=== PATIENT | male | born 1965 | race Caucasian/White ===

== ENCOUNTER 2018-05-12 10:43 | Inpatient (IN) | payer OTHER ==
[~2018-05-12] VITALS: Ht 182.9 cm; Wt 125.6 kg
[2018-05-12] VITALS (15 sets, daily range): BP systolic 86–129; BP diastolic 57–87
[~2018-05-12 10:43] MED LIST: ALBUTEROL INH IH; ALBUTEROL2.5 MG/0.5 INH; ASPIR 8181 MG PO; ATIVAN0.5 MG PO; AUGMENTIN 875-1 EACH PO; AZITHROMYCIN 2250 MG PO; AZULFIDINE; BIAXIN 250MG T250 M1 PO; BROVANA15 MCG/2 M INH; CELEXA20 MG PO; CHANTIX; CHANTIX1 MG PO; DOXEPIN 10 MG C10 M1 PO; DUONEB 2.5-0.5 M3 ML INH; FENTANYL PA50 MCG/HR TRANSDERM; FISH OIL 1,001000 M2 PO; FLEXERIL PO; FLURAZEPAM 15 M15 M1 PO; FOLIC ACID PO; FOLIC ACID1 MG PO; INDOCIN PO; INDOCIN SR75 MG PO; LEVAQUIN 500 M500 M2 PO; LEVAQUIN 750 M750 MG PO; LIDODERM 5%1 PATC1 TRANSDERM; METHOTREXATE; METHOTREXATE 22.5 M1; MUCINEX TA600 MG/TA1 PO; MUCINEX600 MG PO; NICOTINE TRANSD21 M1; NORCO 5-325 TA1 EACH PO; OMEPRAZOLE PO; PERCOCET 10-321 EACH PO; PERCOCET 7.5-31 EACH; PREDNISONE; PREDNISONE 10 M10 M1; PREDNISONE 10 M10 MG PO; PREDNISONE 5 MG5 M1 PO; PREDNISONE 5 MG5 MG; PREDNISONE PO; PRILOSEC; PRILOSEC 20 MG20 MG PO; PROAIR; REMICADE; REMICADE 1100 MG/VIA; REMICADE 1100 MG/VIA IV; RHEUMATREX2.5 MG PO; SINGULAIR 10 MG10 MG; SPIRIVA; SPIRIVA IH; SULFASALAZINE500 M1 PO; SULFASALAZINE500 M5 PO; TESSALON200 MG PO; VITAMIN D2000 UNIT PO; XANAX1 MG PO; XARELTO20 MG PO; ZPAK PO
[2018-05-12 11:07] LABS: ABSOLUTE BASOPHILS 0.1 thou/uL (0.0-0.2); ABSOLUTE EOSINOPHILS 0.1 thou/uL (0.0-0.7); ABSOLUTE LYMPHOCYTES 2.6 thou/uL (0.8-5.3); ABSOLUTE MONOCYTES 1.4 thou/uL (0.0-1.2); ABSOLUTE NEUTROPHILS 12.3 thou/uL (1.6-8.1); BASOPHILS 0.5 %; EOSINOPHILS 0.3 %; HEMOGLOBIN 16.4 gm/dL (14.0-18.0); LYMPHOCYTES 15.8 %; MCH 30.2 pg (26.0-34.0); MCHC 34.1 g/dL (28.0-37.0); MCV 88.7 fL (80.0-100.0); MONOCYTES 8.4 %; MPV 8.4 fl. (7.2-11.1); NUCLEATED RBCS 0 /100WBC; PLATELET COUNT* 319 thou/uL (150-400); RBC 5.41 mil/uL (4.50-6.00); RDW-CV 13.5 % (10.5-14.5); WBC 16.4 thou/uL (4.0-11.0)
[2018-05-12] MEDS ORDERED: ATORVASTATIN CA40 MG PO (11:16)
[2018-05-12] MEDS ORDERED: LISINOPRIL20 MG PO (11:18)
[2018-05-12] MEDS ORDERED: METFORMIN HCL500 MG PO (11:19)
[2018-05-12] MEDS ORDERED: TRESIBA FL100 UNIT/1 INJECTION (11:20)
[2018-05-12] MEDS ORDERED: FLEXERIL PO (11:21)
[2018-05-12] MEDS ORDERED: EFFEXOR XR75 MG PO (11:24)
[2018-05-12 11:31] LABS: APTT 26.6 Seconds (25.0-31.3); INR 1.1; PROTIME 11.1 Seconds (9.20-11.50)
[2018-05-12 11:56] LABS: ANION GAP 12 mmol/L (7-16); BUN 13 mg/dL (7-18); CALCIUM 9.2 mg/dL (8.5-10.1); CHLORIDE 97 mmol/L (98-107); CO2 24 mmol/L (21-32); CREATININE 0.9 mg/dL (0.6-1.3); GLUCOSE 288 mg/dL (70-99); POTASSIUM 3.9 mmol/L (3.5-5.1); SODIUM 133 mmol/L (136-145)
[2018-05-12 12:01] LABS: ALBUMIN 3.2 g/dL (3.4-5.0); ALKALINE PHOSPHATASE 76 U/L (46-116); CK-MB MASS 3.9 ng/mL (<0.5-3.6); LIPASE 108 U/L (73-393); MAGNESIUM 1.8 mg/dL (1.8-2.4); NT-PRO BRAIN NAT PEPTIDE 101 pg/mL (<300); SGOT 31 U/L (15-37); SGPT 49 U/L (30-65); TOTAL BILIRUBIN 0.6 mg/dL (<0.1-1.0); TOTAL PROTEIN 8.3 g/dL (6.4-8.2); TROPONIN-I LEVEL <0.06 ng/mL (<0.06)
--- NOTE | 2018-05-12 15:46 | NUR ---
ADMISSION ASSESSMENT AND HISTORY COMPLETED REFER TO COMPUTER CHARTING. PANEL WIRER TRACKING SR. PATIENT IN BAD PAIN IN HIS LOWER BACK, ORAL MEDS GIVEN WITHOUT RELIEF. IV PAIN MEDS GIVEN PER EMAR, PATIENT REPORTING FEELING BETTER AND SLEEPING AT THIS TIME. BED IN LOW AND LOCKED POSITION. CALL LIGHT WITHIN REACH. IV FLUIDS INFUSING. ON 4 LITERS VIA NASAL CANNULA WITH O2 SATS READING 93%. DR AZUL IN TO SEE PATIENT THIS AFTERNOON. WILL CONTINUE TO MONITOR.
[2018-05-13] VITALS (11 sets, daily range): BP systolic 92–120; BP diastolic 56–91
[2018-05-13 03:59] LABS: ABSOLUTE BASOPHILS 0.1 thou/uL (0.0-0.2); ABSOLUTE EOSINOPHILS 0.1 thou/uL (0.0-0.7); ABSOLUTE LYMPHOCYTES 2.6 thou/uL (0.8-5.3); ABSOLUTE MONOCYTES 1.1 thou/uL (0.0-1.2); ABSOLUTE NEUTROPHILS 10.3 thou/uL (1.6-8.1); BASOPHILS 0.5 %; HEMATOCRIT 45.2 % (42.0-52.0); HEMOGLOBIN 15.2 gm/dL (14.0-18.0); MCH 30.3 pg (26.0-34.0); MCHC 33.6 g/dL (28.0-37.0); MCV 90.2 fL (80.0-100.0); MPV 8.3 fl. (7.2-11.1); NUCLEATED RBCS 0 /100WBC; POLYS 72.5 %; RBC 5.01 mil/uL (4.50-6.00); RDW-CV 13.8 % (10.5-14.5); WBC 14.2 thou/uL (4.0-11.0)
[2018-05-13 04:09] LABS: PLATELET COUNT* 235 thou/uL (150-400)
[2018-05-13 04:35] LABS: ALBUMIN 2.6 g/dL (3.4-5.0); ALKALINE PHOSPHATASE 69 U/L (46-116); ANION GAP 5 mmol/L (7-16); BUN 9 mg/dL (7-18); CALCIUM 9.2 mg/dL (8.5-10.1); CHLORIDE 99 mmol/L (98-107); CO2 29 mmol/L (21-32); CREATININE 0.9 mg/dL (0.6-1.3); GLUCOSE 306 mg/dL (70-99); POTASSIUM 4.3 mmol/L (3.5-5.1); SGOT 32 U/L (15-37); SGPT 46 U/L (30-65); SODIUM 133 mmol/L (136-145); TOTAL BILIRUBIN 0.9 mg/dL (<0.1-1.0); TOTAL PROTEIN 7.4 g/dL (6.4-8.2); TROPONIN-I LEVEL <0.06 ng/mL (<0.06)
[2018-05-13 05:21] LABS: CHOLESTEROL 95 mg/dL (<200); SERUM ASSESSMENT CLEAR; TRIGLYCERIDE 172 mg/dL (<150); VLDL 34 mg/dL (<40)
[2018-05-13 05:22] LABS: HDL CHOLESTEROL 32 mg/dL (>40); LDL CHOLESTEROL 29 mg/dL (<100)
--- NOTE | 2018-05-13 05:46 | NUR ---
ASSUMED CARE OF PT AT 1900 PT ALERT AND ORIENTED X4. VS AND ASSESSMENT STABLE. DRSG TO R GROIN CATH SITE CDI WITHOUT BLEEDING OR HEMATOMA. PT C/O BACK PAIN NOT RELIEVED BY OXY OBTAINED ORDERS FOR IV MORPHINE PRN. PT HAD NO FURTHER COMPLAINTS AND SLEPT THROUGH THE NIGHT. DENIES CHEST PAIN NSR ON THE MONITOR. WILL CONTINUE PLAN OF CARE.
--- NOTE | 2018-05-13 12:00 | NUR ---
SPOKE WITH PT, AND CHILDREN IN THE ROOM ALSO. PT LIVES WITH HIS . HE IS HOME ALONE DURING THE DAY WHILE SHE IS AT WORK BUT MANAGES OK AT HOME. 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 PT DOES NOT DRIVE SINCE HE HAD HIS STROKE. HE HAS A HOME CPAP FROM [facility] AND OXYGEN AT NIGHT FROM [facility]. PT HOPES TO GO HOME TOMORROW, HE DENIES ANY DISCHARGE NEEDS.
--- NOTE | 2018-05-13 12:57 | EKG ---
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 : 1965 Requested By: Milton Lopez Order Number: [id number] Kayla MD: Milton Lopez Measurements Intervals [place] Rate: 94 P: 52 VT: 142 QRS: 51 QRSD: 109 T: 14 QT: 326 QTc: 408 Interpretive Statements Sinus rhythm Inferolateral SC, acute suggested Borderline ST elevation, anterior leads Compared to ECG 11/12/2016 15:41:22 Myocardial infarct finding now present ST (T wave) deviation now present Electronically Signed On 05-13-2018 12:57:10 CDT by Milton Lopez [email or web address] <ELECTRONICALLY SIGNED> By: Milton Lopez MD, FACC 05/13/18 1257 1049 1049 Milton Lopez MD, [facility] /EPI
--- NOTE | 2018-05-13 12:57 | EKG ---
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 : 1965 Requested By: Jason Cabezas Order Number: [id number] Kayla MD: Milton Lopez Measurements Intervals [place] Rate: 96 P: 40 LA: 139 QRS: 59 QRSD: 95 T: 17 QT: 326 QTc: 412 Interpretive Statements Sinus rhythm Inferolateral NE acute suggested Borderline ST elevation, inferior leads Compared to ECG 11/12/2016 15:41:22 Myocardial infarct finding now present ST (T wave) deviation now present Electronically Signed On 05-13-2018 12:57:44 CDT by Milton Lopez [email or web address] <ELECTRONICALLY SIGNED> By: Milton Lopez MD, FACC 05/13/18 1257 1054 1054 Milton Lopez MD, [facility] /EPI
--- NOTE | 2018-05-13 13:00 | EKG ---
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: : 1965 Requested By: Jason Cabezas Order Number: [id number] MD: Milton Lopez Measurements Intervals [place] Rate: 93 P: 50 MD: 141 QRS: 66 QRSD: 89 T: 11 QT: 322 QTc: 401 Interpretive Statements Sinus rhythm Inferolateral infarct, acute Borderline ST elevation, anterior leads Compared to ECG 11/12/2016 15:41:22 Myocardial infarct finding present ST (T wave) deviation now present Electronically Signed On 05-13-2018 13:00:34 CDT by Milton Lopez [email or web address] <ELECTRONICALLY SIGNED> By: Milton Lopez MD, [facility] 05/13/18 1300 1403 1403 Milton Lopez MD, [facility] /EPI
--- NOTE | 2018-05-13 13:08 | EKG ---
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: : 1965 Requested By: Milton Lopez Order Number: [id number] Kayla MD: Milton Lopez Measurements Intervals [place] Rate: 82 P: 43 SD: 139 QRS: 52 QRSD: 88 T: 7 QT: 341 QTc: 399 Interpretive Statements Sinus rhythm Probable inferolateral infarct, acute Borderline ST elevation, inferior leads Compared to ECG 11/12/2016 15:41:22 Myocardial infarct finding now present ST (T wave) deviation now present Electronically Signed On 05-13-2018 13:08:20 CDT by Milton Lopez [email or web address] <ELECTRONICALLY SIGNED> By: Milton Lopez MD, [facility] 05/13/18 1308 0751 0751 Milton Lopez MD, [facility] /EPI
--- NOTE | 2018-05-13 13:26 | 2DMMODE ---
[place] [address] 2 D/M-MODE ECHOCARDIOGRAM Name: YORDY ADRIAN Room: 002-P ADM IN .R.#: [id number] Admission: 05/12/18 Attend Phys: Virgie Al Discharge: Date of : 67 Date of Service: 05/13/18 1326 Report #: [id number] THIS REPORT FOR: //name// APPROVED REPORT Study performed: 05/13/2018 10:11:55 EXAM: Comprehensive 2D, Doppler, and color-flow Echocardiogram Patient Location: In-Patient Room #: 002 Status: routine BSA: 2.45 HR: 74 bpm BP: 98/54 mmHg Rhythm: NSR Other Information Study Quality: Good Indications Acute IA Chest Pain 2D Dimensions LVEF(%): 58.08 (>50%) IVSd: 12.23 (7-11mm) LVOT Diam: 21.04 (18-24mm) LVDd: 46.16 mm PWd: 9.65 (7-11mm) Ascending Ao: 32.49 (22-36mm) LVDs: 32.06 (25-40mm) Aortic Root: 38.94 mm Little's LVEF: 58.08 % Volumes Left Atrial Volume (Systole) LA ESV Index: 26.40 mL/m2 Aortic Valve AoV Peak Merrick.: 1.38 m/s AO Peak Gr.: 7.56 mmHg LVOT Max P.21 mmHg AO Mean Gr.: 4.18 mmHg LVOT Mean P.35 mmHg LVOT Max V: 1.14 m/s AO V2 VTI: 20.11 cm LVOT Mean V: 0.69 m/s LEEANNE (VTI): 3.40 cm2 LVOT V1 VTI: 19.65 [place] [address] 2 D/M-MODE ECHOCARDIOGRAM Name: YORDY ADRIAN Room: [address] IN M.R.#: [id number] Admission: 05/12/18 Attend Phys: Virgie Al Discharge: Date of : 67 Date of Service: 05/13/18 1326 Report #: [id number] E/A Ratio: 1.36 MV Decel. Time: 198.91 ms MV E Max Merrick.: 0.71 m/s MV PHT: 57.68 ms MVA (PHT): 3.81 cm2 TDI E/Lateral E': 7.89 E/Medial E': 7.10 Medial E' Merrick.: 0.10 m/s Lateral E' Merrick.: 0.09 m/s Pulmonary Valve PV Peak Merrick.: 1.19 m/s PV Peak Gr.: 5.65 mmHg Left Ventricle The left ventricle is normal size. There is normal LV segmental wall motion. There is normal left ventricular wall thickness. Left ventricular systolic function is normal. The left ventricular ejection fraction is within the normal range. LVEF is 55-60%. The left ventricular diastolic function is normal. Right Ventricle The right ventricle is normal size. The right ventricular systolic function is normal. Atria The left atrium size is normal. The right atrium size is normal. Aortic Valve The aortic valve is normal in structure. No aortic regurgitation is present. There is no aortic valvular stenosis. Mitral Valve The mitral valve is normal in structure. There is no mitral valve regurgitation noted. No evidence of mitral valve stenosis. Tricuspid Valve The tricuspid valve is normal in structure. Unable to assess PA pressure. Trace tricuspid regurgitation. Pulmonic Valve The pulmonary valve is normal in structure. There is no pulmonic valvular regurgitation[place] [address] 2 D/M-MODE ECHOCARDIOGRAM Name: YORDY ADRIAN Room: [address] IN [facility].#: [id number] Admission: 05/12/18 Attend Phys: Virgie Al Discharge: Date of : 67 Date of Service: 05/13/18 1326 Report #: [id number] The aortic root is normal in size. IVC is normal in size and collapses with >50% inspiration Pericardium Trace pericardial effusion. <Conclusion> The left ventricle is normal size. There is normal left ventricular wall thickness. Left ventricular systolic function is normal. The left ventricular ejection fraction is within the normal range. LVEF is 55-60%. The left ventricular diastolic function is normal. The right ventricle is normal size. The left atrium size is normal. The aortic valve is normal in structure. The mitral valve is normal in structure. The tricuspid valve is normal in structure. IVC is normal in size and collapses with >50% inspiration Trace pericardial effusion. There is normal LV segmental wall motion. <ELECTRONICALLY SIGNED> By: Milton Lopez MD, FACC 05/13/18 1326 25 132 Milton Lopez MD, FACC /INF
--- NOTE | 2018-05-13 14:15 | CARD ---
[address] [address] CARDIAC CATH REPORT Name: YORDY ADRIAN Room: 002-P ADM IN M.R.#: [id number] Admission: 05/12/18 Attend Phys: Milton Lopez MD, Discharge: Date of : 67 Report #: [id number] THIS REPORT FOR: //name// APPROVED REPORT Study performed: 05/12/2018 11:21:51 Patient Details Patient Status: ED Room #: The patient is a 53 year-old male Event Personnel Milton Lopez Data Security Coordinator, Joceline Delgado RN RN, Kt Kaminski Monitor, Norma Felipe RTR Scrub Procedures Performed Left Heart Catheterization, Selective Right and Left Coronary Angiography, Left heart catheterization with selective coronary arteriography, PTCA with Stenting of the posterior descending branch of the dominant right coronary artery Indication STEMI , Chest pain Risk Factors Hypercholesterolemia, Hypertension Previous Procedures/Diagnoses Previous PCI Admission/Lab Medications/Medications given during procedure Aspirin, Platelet Aff. Inhib., Angiomax bolus and infusion Procedure Narrative The patient was brought emergently to the Cardiac Catheterization Laboratory and was prepped and draped in a sterile manner. The right femoral was infiltrated with 2% Lidocaine subcutaneous anesthesia. A [place] 6 FR sheath was inserted into the right femoral artery. Coronary angiography was performed using coronary diagnostic catheters. The right coronary system was accessed and visualized with a 6fr JR 4 catheter. The left coronary system was accessed and visualized with a 6fr JL 4 catheter. The left ventricle was accessed and visualized with a 6fr pigtail catheter. Left ventricular/Aortic Valve gradient assessed via catheter pullback. Pre-demployment femoral angiogram was performed . Closure [place] [address] CARDIAC CATH REPORT Name: YORDY ADRIAN Room: [address] IN [facility].#: [id number] Admission: 05/12/18 Attend Phys: Milton Lopez MD, Discharge: Date of : 67 Report #: [id number] Fr Angioseal STS 6Fr. The patient tolerated the procedure well and there were no complications associated with the procedure. There was no hematoma. Intraoperative Conscious Sedation Sedation start time: 11:37 Case end Time: 12:10 Fluoro Time: 10.5 minutes Dose: DAP 160229 cGycm2 2510 mGy Contrast Type and Amount: Visipaque 265 ml Coronary Angiography The patient's coronary anatomy is right dominant. Diagnostic Cath Left Main 0% narrowing LAD 30% proximal and 40% mid LAD narrowing Circumflex Nondominant vessel with 30% mid vessel narrowing and 50% narrowing of the proximal portion of the second marginal branch Right Coronary Dominant vessel with widely patent proximal stent and 90% stenosis of the proximal portion of the posterior descending branch with local thrombus noted Hemodynamics The aortic pressure is 100/64 mmHg with a mean of 78 mmHg. The left ventricular pressure is 104/5 mmHg with a mean of mmHg. The left ventricular end diastolic pressure is 11 mmHg. There was no gradient across the aortic valve upon pullback. Pullback from the left ventricle to the aorta revealed no gradient across the aortic valve. PCI Technique Lesion Percutaneous coronary intervention was performed on the right posterior descending artery. The lesion stenosis prior to intervention was 95% with EARNESTINE 2 flow. A 6F JR 4.0 Guide Catheter was used to engage the RCA ostium. A IG: ProwaterFlex 180CM Interventional Guidewire was used to cross the lesion. BALLOON DILATION A Balloon catheter Mini Trek RX 2.0 X 12 was inserted and inflated up to 10.00atm for 8seconds. Additional Inflation: 12.00atm for 12seconds. STENT DEPLOYMENT A drug-eluting stent Xience Alpine RX 2.25X18 [place] [address] CARDIAC CATH REPORT Name: YORDY ADRIAN Room: [address] IN [facility]#: [id number] Admission: 05/12/18 Attend Phys: Milton Lopez MD, Discharge: Date of : 67 Report #: [id number] inflated up to 6.00atm for 18seconds. Additional Inflation: 7.00atm for 15seconds. Final angiography reveals 0 % stenosis with EARNESTINE 3 flow. Conclusion #1 significant coronary artery disease characterized by the following: A 30% proximal and 40% mid LAD narrowing B 30% mid circumflex narrowing with 50% narrowing of the proximal portion of the second marginal branch C dominant right coronary artery with widely patent proximal stent and 95% stenosis of the proximal portion of the posterior descending branch with local thrombus at the site #2 normal left-sided hemodynamics study #3 successful percutaneous coronary intervention with deployment of a drug-eluting stent at the site of 95% posterior descending branch stenosis in the dominant right coronary artery with 0% residual narrowing and EARNESTINE-3 flow to the distal vessel and no residual thrombus Recommendations Cardiac Risk Reduction Program Aggressive Medical Therapy Medications Administered Aspirin (any) Prasugrel Diagnostic Cath Approved by: Milton Lopez MD Date/Time: 05/13/18 at 1414 hrs. <ELECTRONICALLY SIGNED> By: Milton Lopez MD, [facility] 05/13/18 1415 141 1415Milton Lopez MD, FACC /INF
--- NOTE | 2018-05-13 15:17 | NUR ---
PATIENT ALERT UP IN ROOM GIVEN BRILINTA SAMPLES HOME WITH . USES FENTANYL PATCH 50 MCG/HR HOME MED DONE. CALLED REPORT TO NAYAN KNUTSON TRANSFERED TO RM 209.
--- NOTE | 2018-05-13 15:21 | H ---
[place] [address] HISTORY AND PHYSICAL Name: KAYLAHYORDY ROMARIO Room: [address] IN M.R.#: [id number] Admission: 05/12/18 Attend Phys: Milton Lopez MD, Discharge: Date of : 67 Report #: [id number] THIS REPORT FOR: //name// CC: Titi Lopez DATE OF SERVICE: 05/12/2018 HISTORY OF PRESENT ILLNESS: The patient is a 53-year-old male with multiple risk factors for coronary artery disease including hypertension, hyperlipidemia, diabetes and tobacco habituation. There is a history of prior stenting of the right coronary artery. He was awakened this morning with chest discomfort, which persisted until his arrival in the Emergency Room at [facility]. EKG there suggested acute inferior wall ST segment elevation infarction and pain persisted with site administration of nitrates, heparin and aspirin. I was asked to see the patient who continued to complain of significant central chest discomfort without associated nausea or diaphoresis. The patient does have a history of prior stenting of the right coronary artery remotely. As noted above, he has type 2 diabetes, weight excess, hyperlipidemia and tobacco habituation. PHYSICAL EXAMINATION: GENERAL: Demonstrates an acutely distressed, overweight, middle-aged male. VITAL SIGNS: Blood pressure 160/80, pulse rate 74, respirations 18 per minute. NECK: Jugular venous pressure difficult to ascertain. CHEST: Clear anteriorly. CARDIAC: Reveals soft systolic murmur with a question of S4 gallop. ABDOMEN: Mildly obese. EXTREMITIES: Reveal intact femoral, pedal and radial pulses. IMPRESSION: 1. Acute inferior wall ST segment elevation myocardial infarction. 2. Coronary artery disease status post remote stenting of the right coronary artery. 3. Hypertension. 4. Hypercholesterolemia. 5. Type 2 diabetes. 6. Exogenous obesity. 7. History of remote cerebrovascular accident. RECOMMENDATIONS: Emergent catheterization with strong consideration of a percutaneous coronary intervention contingent [place] [address] HISTORY AND PHYSICAL Name: KAYLAHYORDY ROMARIO Room: [address] IN [facility].#: [id number] Admission: 05/12/18 Attend Phys: Milton Lopez MD, Discharge: Date of : 67 Report #: [id number] The patient has already received aspirin, heparin and nitrates with which I concur. This has been discussed with the patient and family, we will plan to proceed with emergent catheterization on 05/12/2018. LOCATION: The patient is in ICU2. CRITICAL CARE TIME: 11:00-11:35. <ELECTRONICALLY SIGNED> By: Milton Lopez MD, [facility] 05/13/18 1521 1801 1812Milton Lopez MD, FACC /nt
--- NOTE | 2018-05-13 15:35 | NUR ---
PT ARRIVED ON HE UNIT ACCOMPANIED BY FAMILY. PT ON CARDIAC MONITER TRACING SR HR 66. PT IS ON 3L OF 02. REPORT TAKEN FROM NENITA, READ AND AGREE WITH HIS ASSSSMENT. .
[2018-05-14] VITALS: BP 111/60
--- NOTE | 2018-05-14 01:43 | NUR ---
PATIENT RESTED IN BED, NO ACUTE CHANGES. PATIENT DID NOT SHOW SIGNS OF DISTRESS. FALL PRECAUTIONS, BED ALARM ON, CALL LIGHT WITHIN REACH, HOURLY ROUNDING OBSERVED. NO COMPLAINTS OF CHEST PAIN.
[2018-05-14 04:00] VITALS: BP 120/78
[2018-05-14 04:54] LABS: ABSOLUTE EOSINOPHILS 0.1 thou/uL (0.0-0.7); ABSOLUTE LYMPHOCYTES 2.1 thou/uL (0.8-5.3); ABSOLUTE MONOCYTES 1.1 thou/uL (0.0-1.2); ABSOLUTE NEUTROPHILS 8.4 thou/uL (1.6-8.1); BASOPHILS 0.2 %; EOSINOPHILS 0.8 %; HEMATOCRIT 42.1 % (42.0-52.0); HEMOGLOBIN 14.2 gm/dL (14.0-18.0); LYMPHOCYTES 17.7 %; MCH 30.4 pg (26.0-34.0); MCHC 33.7 g/dL (28.0-37.0); MCV 90.2 fL (80.0-100.0); MONOCYTES 9.3 %; MPV 8.5 fl. (7.2-11.1); NUCLEATED RBCS 0 /100WBC; PLATELET COUNT* 231 thou/uL (150-400); RBC 4.66 mil/uL (4.50-6.00); RDW-CV 13.5 % (10.5-14.5); WBC 11.6 thou/uL (4.0-11.0)
[2018-05-14 05:12] LABS: ALBUMIN 2.5 g/dL (3.4-5.0); CALCIUM 9.6 mg/dL (8.5-10.1); CREATININE 0.9 mg/dL (0.6-1.3); POTASSIUM 4.3 mmol/L (3.5-5.1); TOTAL BILIRUBIN 0.4 mg/dL (<0.1-1.0); TOTAL PROTEIN 7.8 g/dL (6.4-8.2)
--- NOTE | 2018-05-14 05:21 | NUR ---
PATIENT IS NOT SHOWING SIGNS OF DISTRESS.
[2018-05-14 07:48] VITALS: BP 123/81
--- NOTE | 2018-05-14 08:59 | NUR ---
ASSUMED CARE OF PT THIS AM AROUND 0715- COMPLETIONS ENGINEER IN PLACE ORDERED, TRACING SR- UPON ASSESSMENT PT NOTED TO BE UP SITTING IN BED SIDE CHAIR, WATCHING TV- PT A&O X4- CONTINENT OF BOWEL AND BLADDER- SBA WITH TRANSFERS FOR SAFETY- LCTA, RESP EVEN AND UN-LABORED- DYSPNEA NOTED TO EXERTION- VSS, O2 SAT 96% ON 3L VIA NC- ABDOMEN SOFT/ROUND/NON-TENDER, BS X4 QUADS- LAST BM REPORTED 05/13/18- IV NOTED TO RIGHT SC AND LEFT FA INTACT AND SL- RIGHT GROIN C/D/I, WITH NO HEMATOMA OR S/S INFECTION NOTED- GOOD PO INTAKE NOTED THIS AM WITH BREAKFAST- BS MONITORED ORDERED, SSI PRESCIBED- 05/11 BACK PAIN REPORTED THIS AM- PRN PAIN MEDICATIONS REQUESTED- CALL LIGHT AND PERSONAL BELONGINGS WITH IN REACH- HOURLY ROUNDS IN PLACE R/T SAFETY/NEEDS-ALL NEEDS MET AT THIS TIME-WCTM
[2018-05-14] MEDS ORDERED: BRILINTA90 MG PO (09:57)
[2018-05-14] MEDS ORDERED: CARVEDILOL3.125 MG PO (10:01)
[2018-05-14] MEDS ORDERED: XARELTO15 MG PO (10:09)
[2018-05-14 12:00] VITALS: BP 130/84
[2018-05-14 12:08] VITALS: BP 97/59
--- NOTE | 2018-05-14 14:06 | NUR ---
ORDERS RECIEVED THIS SHIFT FOR OKAY TO D/C TO HOME PER THIS AM, BANDAGE TO RIGHT GROIN CHANGED WITH BANDAIDE APPLIED PER PHYSICAIN THIS AM- HERE TO ASSESS WITH OKAY TO D/C WELL- AFTERNOON BS PRIOR TO D/C NOTED TO BE 407- HUMALOG 12 UNITS IN ADDITION TO SCHEDULED SSI X1 ORDER RECIVED AND GIVEN PRIOR TO D/C- IV'S TO RIGHT AC AND LEFT FA D/C'D PRIOR TO D/C, ALONG WITH WILLOWER- SMALL ARMS REPAIRER HERE TO GIVEN EDUCATION TO PT ADN FAMILY PRIOR TO D/C- D/C EDUCATION/TEACHING GIVEN TO PT AND FAMILY PRIOR TO D/C WTIH ALL QUESTIONS AND CONCERNS ADDRESSED-WRITTEN EDUCATION ALONG WITH PRESCRIPTIONS GIVEN PRIOR TO D/C- GROIN SITE EDUCATION GIVEN WITH VERBAL UNDERSTANDING RECIEVED PER PT AND - BELONGINGS PACKED AND ACCOUNTED FOR PER PT AND - PT ESCORTED WITH BELONGINGS PER TECH VIA W/C TO VEHICLE; AT SIDE AT 1335- NO PROBLEMS TO NOTE AT TIME OF D/C
--- NOTE | 2018-05-24 17:12 | D ---
[address] [address] DISCHARGE SUMMARY Name: KAYLAHYORDYCHARISMA DOSS Room: [address] IN M.R.#: [id number] Admission: 05/12/18 Attend Phys: Milton Lopez MD, Discharge: 05/14/18 Date of : 67 Report #: [id number] THIS REPORT FOR: //name// CC: Titi Lopez DATE OF SERVICE: 05/14/2018 The patient is discharged from 203. FINAL DISCHARGE DIAGNOSES: 1. Acute coronary syndrome with ST segment elevation and persistent chest pain. 2. Coronary artery disease, status post remote stenting of the proximal right coronary artery and stenting of the posterior descending branch on 05/12/2018. 3. Hypertension. 4. Hyperlipidemia. 5. Type 2 diabetes. 6. Obesity. 7. History of cerebrovascular accident. 8. History of deep vein thrombosis and pulmonary emboli. PROCEDURES: 05/12/2018 -- left heart catheterization, selective coronary arteriography and percutaneous coronary intervention with deployment of drug-eluting stent at the site of 95% stenosis in the posterior descending branch of the dominant right coronary artery. HOSPITAL COURSE: The patient is a 53-year-old male with complex coronary artery disease and multiple risk factors for coronary artery disease including hypertension, hyperlipidemia, diabetes and obesity. There is a history of CVA and pulmonary emboli. He presented with persistent chest pain similar to prior ischemic pain with waxing and waning ST segment elevation. In that context, I performed acute catheterization, which revealed modest LAD and circumflex disease with a widely patent right coronary stent proximally and 95% stenosis of the posterior descending branch of the right coronary artery with local thrombus at the site. I deployed one drug-eluting stent in the distal right coronary artery with 0% residual narrowing, EARNESTINE-3 flow of the distal vessel and no residual thrombus. Given the transitory nature of the ST elevation, he did not have significant enzymatic alteration. Chest pain remitted after stent deployment and did not recur. He was placed on dual antiplatelet therapy. There was good healing of the right femoral site of catheterization with an Angio-Seal device placed at [place] [address] DISCHARGE SUMMARY Name: YORDY ADRIAN Room: [address] IN [facility].#: [id number] Admission: 05/12/18 Attend Phys: Milton Lopez MD, Discharge: 05/14/18 Date of : 67 Report #: [id number] recent use of Xarelto. He did well post-procedure with the exception of poor diabetic control, which has been the case prior to the hospitalization. There was good hemostasis at the right femoral site. LABORATORY DATA: Pre-discharge revealed a hemoglobin of 14.2, white blood cell count of 11,600 with 231,000 platelets. Sodium 131, potassium 4.3, BUN 14, creatinine 0.9. Troponin down to less than 0.06. DISCHARGE MEDICATIONS: The patient was discharged to home in stable condition on 05/14/2018 on the following medications: Aspirin 81 mg daily, atorvastatin 40 mg daily, carvedilol 3.125 mg b.i.d., vitamin D3 2000 units at bedtime, Flexeril 10 mg t.i.d., fish oil 1000 mg at bedtime, flurazepam 15 mg at bedtime, Remicade 100 mg with 800 mg given intravenously every 6 weeks, Tresiba FlexTouch 20 units injection daily at 0700, lisinopril 20 mg daily, metformin 500 mg b.i.d. to be resumed on 05/15/2018, omeprazole 20 mg daily, prednisone mg daily, rivaroxaban 15 mg to be resumed on 05/17/2018, Effexor 150 mg daily, albuterol 2.5 mg inhalation every 2-3 hours p.r.n. bronchospasm, alprazolam 1 mg t.i.d. p.r.n., and oxycodone/acetaminophen 10/325 one tablet every 4-6 hours p.r.n. DISCHARGE INSTRUCTIONS: The patient is scheduled to see my nurse practitioner on 05/19/2018 at 1300 and myself on 06/08/2018 at 1400. His continuing care will be with Dr. Titi Paula. I re-emphasized to the patient the importance of careful followup with Dr. Paula and requisite modifications and diabetic therapy. <ELECTRONICALLY SIGNED> By: Milton Lopez MD, [facility] 05/24/18 1712 1000 1052Jomark Lopez MD, [facility] /nt
== END 2018-05-14 13:35 | disposition home or self-care (01) | DRG 246 ==
LOC: M.ERS 10:43 → M.CL 10:43 → M.2W 13:09 → M.ICU 13:09 → M.TBA-CV 13:09 → M.ICU 13:13 → M.2W 05-13 15:33
PROVIDERS: Family Medicine; Internal Medicine; ADMIT Internal Medicine
DX: I21.19 ST elevation (STEMI) myocardial infarction involving other coronary artery of inferior wall (principal); J96.20 Acute and chronic respiratory failure, unspecified whether with hypoxia or hypercapnia; E44.0 Moderate protein-calorie malnutrition; I25.10 Atherosclerotic heart disease of native coronary artery without angina pectoris; I10 Essential (primary) hypertension; E78.00 Pure hypercholesterolemia, unspecified; E66.09 Other obesity due to excess calories; M06.9 Rheumatoid arthritis, unspecified; F17.210 Nicotine dependence, cigarettes, uncomplicated; G89.29 Other chronic pain; J44.9 Chronic obstructive pulmonary disease, unspecified; E78.5 Hyperlipidemia, unspecified; E11.9 Type 2 diabetes mellitus without complications; Z68.37 Body mass index [BMI] 37.0-37.9, adult; Z86.73 Personal history of transient ischemic attack (TIA), and cerebral infarction without residual deficits; Z86.718 Personal history of other venous thrombosis and embolism; Z79.01 Long term (current) use of anticoagulants; Z86.711 Personal history of pulmonary embolism; Z95.5 Presence of coronary angioplasty implant and graft; Z79.82 Long term (current) use of aspirin; Z91.040 Latex allergy status; Z90.49 Acquired absence of other specified parts of digestive tract; Z82.5 Family history of asthma and other chronic lower respiratory diseases

== ENCOUNTER 2018-08-31 06:46 | Emergency (ER) | payer OTHER, MEDICARE ==
[~2018-08-31] VITALS: Ht 182.9 cm; Wt 114.3 kg
[~2018-08-31 06:46] MED LIST changes: +ATORVASTATIN CA40 MG PO; +BRILINTA90 MG PO; +CARVEDILOL3.125 MG PO; +EFFEXOR XR75 MG PO; +LISINOPRIL20 MG PO; +METFORMIN HCL500 MG PO; +TRESIBA FL100 UNIT/1 INJECTION; +XARELTO15 MG PO
[2018-08-31] MEDS ORDERED: ACTEMRA400 MG/20 IV (07:08)
[2018-08-31 07:15] LABS: ABSOLUTE BASOPHILS 0.1 thou/uL (0.0-0.2); ABSOLUTE EOSINOPHILS 0.2 thou/uL (0.0-0.7); ABSOLUTE LYMPHOCYTES 3.3 thou/uL (0.8-5.3); ABSOLUTE MONOCYTES 0.7 thou/uL (0.0-1.2); ABSOLUTE NEUTROPHILS 4.8 thou/uL (1.6-8.1); BASOPHILS 0.6 %; EOSINOPHILS 1.8 %; HEMATOCRIT 54.2 % (42.0-52.0); HEMOGLOBIN 18.3 gm/dL (14.0-18.0); LYMPHOCYTES 36.6 %; MCH 30.8 pg (26.0-34.0); MCHC 33.8 g/dL (28.0-37.0); MONOCYTES 7.7 %; MPV 7.7 fl. (7.2-11.1); NUCLEATED RBCS 0 /100WBC; PLATELET COUNT* 407 thou/uL (150-400); POLYS 53.3 %; RBC 5.96 mil/uL (4.50-6.00); RDW-CV 15.6 % (10.5-14.5); WBC 9.1 thou/uL (4.0-11.0)
[2018-08-31 07:24] LABS: CALCIUM 9.4 mg/dL (8.5-10.1); POTASSIUM 4.5 mmol/L (3.5-5.1)
[2018-08-31 07:26] LABS: APTT 28.7 Seconds (25.0-31.3); INR 1.3; PROTIME 12.8 Seconds (9.20-11.50)
[2018-08-31 07:28] LABS: ALBUMIN 3.6 g/dL (3.4-5.0); TOTAL BILIRUBIN 0.7 mg/dL (<0.1-1.0); TOTAL PROTEIN 8.2 g/dL (6.4-8.2)
[2018-08-31 08:01] LABS: URINE BILIRUBIN NEGATIVE (Negative); URINE BLOOD NEGATIVE (Negative); URINE CLARITY CLEAR; URINE COLOR YELLOW; URINE GLUCOSE-RANDOM NEGATIVE (Negative); URINE KETONES TRACE (Negative); URINE LEUKOCYTES-REFLEX NEGATIVE (Negative); URINE NITRITE-REFLEX NEGATIVE (Negative); URINE PROTEIN TRACE (Negative); URINE SPECIFIC GRAVITY >= 1.030 (1.005-1.030); URINE UROBILINOGEN 0.2 E.U./dl (0.2-1.0)
[2018-08-31 10:00] VITALS: BP 119/87
== END 2018-08-31 10:01 | disposition home or self-care (01) ==
LOC: M.ERS 06:46
PROVIDERS: Emergency Medicine
DX: K92.1 Melena (principal); E11.9 Type 2 diabetes mellitus without complications; I10 Essential (primary) hypertension; J44.9 Chronic obstructive pulmonary disease, unspecified; K21.9 Gastro-esophageal reflux disease without esophagitis; Z95.5 Presence of coronary angioplasty implant and graft; F17.210 Nicotine dependence, cigarettes, uncomplicated; Z91.040 Latex allergy status

== ENCOUNTER → 2018-09-03 | Day surgery (SDC) | payer OTHER, MEDICARE ==
[~2018-09-03] MED LIST changes: +ACTEMRA400 MG/20 IV
--- NOTE | 2018-09-08 13:09 | PATH ---
[facility] [address] [place] [address] PATHOLOGY RPT PROCEDURE Name: YORDY ADRIAN Room: [facility] M.R.#: [id number] Admission: 09/03/18 Date of : 67 Discharge: Report #: [id number] Path Case #: [id number] [facility] Accession Number: [id number] . 01 Material submitted: . PART A: DUODENAL BIOPSY FOR CELIAC PART B: RANDOM COLON BIOPSIES FOR MICROSCOPIC COLITIS PART C: TRANSVERSE COLON POLYPS X4 . 01 Clinician provided ICD-10: K62.5 R11.0 R10.10 K21.9 . 01 Clinical history: . Rectal bleed, nausea, upper abdominal pain, GERD . 02 Diagnosis: A. Duodenal biopsy: - Normal duodenal/small intestinal mucosa. . B. Random sigmoid colon biopsies: - Focal fresh hemorrhage in otherwise normal colonic mucosa. . C. Transverse colon polyps x 4: - Multiple tubular adenomas, negative for high-grade dysplasia. (RODRIGO:tucker; 09/06/2018) QMS/09/06/2018 . 02 Electronically signed: . Billy Lin MD, Pathologist NPI- [id number] . 01 Gross description: . A. Received in formalin labeled "Yordy Adrian, duodenal biopsy for celiac," are 3 segments of ramirez soft tissue measuring 0.9 x 0.5 x 0.3 cm in aggregate dimensions and ranging from 0.4 to 0.5 cm in maximum dimension. The specimen is submitted entirely in cassette A1. . B. Received in formalin labeled "Yordy Adrian, random sigmoid colon biopsies for microscopic colitis," are 2 segments of ramirez soft tissue measuring 1.0 x 0.2 x 0.2 cm in aggregate dimensions and ranging from 0.3 to 0.7 cm in maximum dimension. The specimen is submitted entirely in cassette B1. . C. Received in formalin labeled "Yordy Adrian, transverse colon polyps x4," are multiple segments of ramirez soft tissue measuring 2.1 x 0.6 [place] [address] PATHOLOGY RPT PROCEDURE Name: YORDY ADRIAN Room: [facility].#: [id number] Admission: 09/03/18 Date of : 67 Discharge: Report #: [id number] Path Case #: [id number] 0.2 cm in aggregate dimensions. The specimen is filtered and entirely submitted in cassette C1. (TSD; 09/03/2018) TOB/TOB . 02 Pathologist provided ICD-10: D12.3, K62.5, R11.0, R10.10, K21.9 . 02 CPT . 281145, 984804, 579655 Specimen Comment: A courtesy copy of this report has been sent to Specimen Comment: [phone], , , . Specimen Comment: Report sent to / DR VENTURA Specimen Comment: A duplicate report has been generated due to demographic updates. Performed at: [address], [place], [place] [id number] MD Elier Reza MD Phone: [phone] Performed at: 02 [facility] [address], [place], [place] [id number] MD Billy Lin MD Phone: [phone]
== END | disposition home or self-care (01) ==
LOC: M.SUR 06:43
DX: D12.3 Benign neoplasm of transverse colon (principal); K64.4 Residual hemorrhoidal skin tags; K21.9 Gastro-esophageal reflux disease without esophagitis; I10 Essential (primary) hypertension; E11.9 Type 2 diabetes mellitus without complications; I25.10 Atherosclerotic heart disease of native coronary artery without angina pectoris; I25.2 Old myocardial infarction; J44.9 Chronic obstructive pulmonary disease, unspecified; G47.33 Obstructive sleep apnea (adult) (pediatric); M06.9 Rheumatoid arthritis, unspecified; F17.210 Nicotine dependence, cigarettes, uncomplicated; F32.9 Major depressive disorder, single episode, unspecified; Z86.73 Personal history of transient ischemic attack (TIA), and cerebral infarction without residual deficits; Z86.010 Personal history of colon polyps; Z79.01 Long term (current) use of anticoagulants; Z91.040 Latex allergy status; Z79.899 Other long term (current) drug therapy; Z98.890 Other specified postprocedural states; Z86.718 Personal history of other venous thrombosis and embolism

== ENCOUNTER 2018-10-29 10:11 | Emergency (ER) | payer OTHER, MEDICARE ==
[~2018-10-29] VITALS: Ht 182.9 cm; Wt 119.3 kg
[2018-10-29] MEDS ORDERED: PRILOSEC 20 MG20 MG PO (10:37)
[2018-10-29] MEDS ORDERED: PREDNISONE 10 M10 MG PO (10:37)
[2018-10-29] MEDS ORDERED: VITAMIN D2000 UNIT PO (10:38)
[2018-10-29] MEDS ORDERED: XARELTO15 MG PO (10:38)
[2018-10-29] MEDS ORDERED: TRESIBA FL100 UNIT/1 SUBQ (10:38)
[2018-10-29] MEDS ORDERED: ALBUTEROL2.5 MG/31 INH (10:39)
[2018-10-29] MEDS ORDERED: LISINOPRIL20 MG PO (10:39)
[2018-10-29] MEDS ORDERED: ASPIR 8181 MG PO (10:41)
[2018-10-29] MEDS ORDERED: BRILINTA90 MG PO (10:41)
[2018-10-29] MEDS ORDERED: CARVEDILOL3.125 MG PO (10:41)
[2018-10-29] MEDS ORDERED: ACTEMRA400 MG/20 IV (10:41)
[2018-10-29] MEDS ORDERED: CYCLOBENZAPRINE10 MG PO (10:42)
[2018-10-29] MEDS ORDERED: VENLAFAXINE HC150 MG PO (10:42)
[2018-10-29] MEDS ORDERED: FISH OIL 1,001000 M2 PO (10:42)
[2018-10-29] MEDS ORDERED: ATORVASTATIN CA40 MG PO (10:43)
[2018-10-29] MEDS ORDERED: METFORMIN HCL500 MG PO (10:43)
[2018-10-29] MEDS ORDERED: PERCOCET 10-321 EACH PO (10:45)
[2018-10-29 11:24] LABS: ABSOLUTE EOSINOPHILS 0.1 thou/uL (0.0-0.7); ABSOLUTE LYMPHOCYTES 2.2 thou/uL (0.8-5.3); ABSOLUTE MONOCYTES 0.7 thou/uL (0.0-1.2); ABSOLUTE NEUTROPHILS 7.7 thou/uL (1.6-8.1); BASOPHILS 0.2 %; EOSINOPHILS 0.9 %; HEMATOCRIT 46.4 % (42.0-52.0); HEMOGLOBIN 16.1 gm/dL (14.0-18.0); LYMPHOCYTES 20.7 %; MCH 32.2 pg (26.0-34.0); MCHC 34.7 g/dL (28.0-37.0); MCV 92.8 fL (80.0-100.0); MONOCYTES 6.9 %; MPV 8.4 fl. (7.2-11.1); NUCLEATED RBCS 0 /100WBC; PLATELET COUNT* 270 thou/uL (150-400); POLYS 71.3 %; RBC 4.99 mil/uL (4.50-6.00); RDW-CV 13.9 % (10.5-14.5); WBC 10.8 thou/uL (4.0-11.0)
[2018-10-29 11:33] LABS: ANION GAP 9 mmol/L (7-16); BUN 11 mg/dL (7-18); CALCIUM 9.3 mg/dL (8.5-10.1); CHLORIDE 100 mmol/L (98-107); CO2 26 mmol/L (21-32); CREATININE 0.8 mg/dL (0.6-1.3); GLUCOSE 231 mg/dL (70-99); POTASSIUM 4.3 mmol/L (3.5-5.1); SODIUM 135 mmol/L (136-145)
[2018-10-29 11:40] LABS: ALBUMIN 3.3 g/dL (3.4-5.0); ALKALINE PHOSPHATASE 61 U/L (46-116); APTT 28.6 Seconds (25.0-31.3); INR 1.1; PROTIME 11.4 Seconds (9.20-11.50); SGOT 52 U/L (15-37); SGPT 104 U/L (30-65); TOTAL BILIRUBIN 0.5 mg/dL (<0.1-1.0); TOTAL PROTEIN 7.9 g/dL (6.4-8.2); TROPONIN-I LEVEL <0.06 ng/mL (<0.06)
[2018-10-29 12:27] LABS: ESR (SEDRATE) 28 mm/hr (0-20)
[2018-10-29 13:45] VITALS: BP 98/73
--- NOTE | 2018-10-29 14:24 | EKG ---
[place] [address] ELECTROCARDIOGRAM REPORT Name: YORDY ADRIAN [id number] Admission: 10/29/18 Attend Phys: Discharge: 10/29/18 Date of : 67 Report #: [id number] THIS REPORT FOR: //name// [facility] ED Test Date: 2018-10-29 Test Time: 10:54:37 Pat Name: YORDY ADIRAN Department: Room: Gender: M Infection Control Specialist: Miriam LACKEY : 1965 Requested By: Anel Simon Order Number: [id number] MD: Mani Calderon Measurements Intervals [place] Rate: 70 P: 26 IA: 147 QRS: 40 QRSD: 110 T: 13 QT: 368 QTc: 398 Interpretive Statements Sinus rhythm Low voltage, precordial leads Borderline ST elevation, lateral leads Baseline wander in lead(s) V2 Inferior Q waves, inferior infarct possible, old Compared to ECG 05/13/2018 07:51:45 Low QRS voltage now present ST (T wave) deviation still present Electronically Signed On 10-29-2018 14:24:13 BID CLERK by Mani Calderon [email or web address] <ELECTRONICALLY SIGNED> By: Mani Calderon MD, FACC 10/29/18 1424 1054 1054 Mani Calderon MD, FACC /EPI
== END 2018-10-29 13:46 | disposition home or self-care (01) ==
LOC: M.ERS 10:11
PROVIDERS: Physician Assistant
DX: M54.2 Cervicalgia (principal); M25.512 Pain in left shoulder; I26.99 Other pulmonary embolism without acute cor pulmonale; E11.9 Type 2 diabetes mellitus without complications; I10 Essential (primary) hypertension; J44.9 Chronic obstructive pulmonary disease, unspecified; K21.9 Gastro-esophageal reflux disease without esophagitis; M06.9 Rheumatoid arthritis, unspecified; F17.210 Nicotine dependence, cigarettes, uncomplicated; Z91.040 Latex allergy status; Z86.73 Personal history of transient ischemic attack (TIA), and cerebral infarction without residual deficits; Z95.5 Presence of coronary angioplasty implant and graft

== ENCOUNTER 2019-09-24 18:57 | Emergency (ER) | payer OTHER, MEDICARE ==
[~2019-09-24] VITALS: Ht 182.9 cm; Wt 112.0 kg
[~2019-09-24 18:57] MED LIST changes: +ALBUTEROL2.5 MG/31 INH; +CYCLOBENZAPRINE10 MG PO; +TRESIBA FL100 UNIT/1 SUBQ; +VENLAFAXINE HC150 MG PO
[2019-09-24] MEDS ORDERED: ZOFRAN 4 MG ORAL4 MG PO (19:11)
[2019-09-24] MEDS ORDERED: ARAVA10 MG PO (19:12)
[2019-09-24] MEDS ORDERED: FISH OIL 1,0001 EAC9 PO (19:12)
[2019-09-24] MEDS ORDERED: GLUCOPHAGE1000 MG PO (19:12)
[2019-09-24] MEDS ORDERED: MELATONIN3 M1 PO (19:12)
[2019-09-24] MEDS ORDERED: ASA81BEC PO (19:13)
[2019-09-24] MEDS ORDERED: CARVEDILOL25 MG PO (19:13)
[2019-09-24] MEDS ORDERED: LISINOPRIL20 MG PO (19:13)
[2019-09-24] MEDS ORDERED: LIPITOR 40 MG T40 M1 PO (19:14)
[2019-09-24] MEDS ORDERED: SUPER THERAVIT1 EACH PO (19:14)
[2019-09-24] MEDS ORDERED: FLEXERIL PO (19:14)
[2019-09-24] MEDS ORDERED: VENLAFAXINE HCL75 MG PO (19:15)
[2019-09-24] MEDS ORDERED: XARELTO15 MG PO (19:15)
[2019-09-24] MEDS ORDERED: RAYOS5 MG PO (19:15)
[2019-09-24] MEDS ORDERED: AMBIEN 10 MG TA10 MG PO (19:15)
[2019-09-24] MEDS ORDERED: NITROSTAT0.4 M1 SUBLING (19:16)
[2019-09-24] MEDS ORDERED: PERCOCET 5-3251 EACH PO (19:16)
[2019-09-24] MEDS ORDERED: TRESIBA100 UNIT/1 SUBQ (19:17)
[2019-09-24 19:42] LABS: ABSOLUTE BASOPHILS 0.1 thou/uL (0.0-0.2); ABSOLUTE EOSINOPHILS 0.2 thou/uL (0.0-0.7); ABSOLUTE LYMPHOCYTES 2.9 thou/uL (0.8-5.3); ABSOLUTE MONOCYTES 0.7 thou/uL (0.0-1.2); ABSOLUTE NEUTROPHILS 7.1 thou/uL (1.6-8.1); EOSINOPHILS 1.5 %; LYMPHOCYTES 26.6 %; MCH 25.5 pg (26.0-34.0); MCHC 32.5 g/dL (28.0-37.0); MCV 78.4 fL (80.0-100.0); MONOCYTES 6.3 %; MPV 8.5 fl. (7.2-11.1); NUCLEATED RBCS 0 /100WBC; PLATELET COUNT* 301 thou/uL (150-400); POLYS 64.6 %; RBC 5.49 mil/uL (4.50-6.00); RDW-CV 17.9 % (10.5-14.5); WBC 10.9 thou/uL (4.0-11.0)
[2019-09-24 19:51] LABS: CALCIUM 8.9 mg/dL (8.5-10.1); CREATININE 0.9 mg/dL (0.6-1.3)
[2019-09-24 19:54] LABS: INR 1.2; PROTIME 12.7 Seconds (9.20-11.50)
[2019-09-24 20:01] LABS: ALBUMIN 3.1 g/dL (3.4-5.0); TOTAL BILIRUBIN 0.4 mg/dL (<0.1-1.0); TOTAL PROTEIN 7.6 g/dL (6.4-8.2)
[2019-09-24] MEDS ORDERED: HYDROCODON-ACE1 EAC5 PO (21:44)
[2019-09-24 21:54] VITALS: BP 131/89
--- NOTE | 2019-09-26 11:31 | EKG ---
[place] [address] ELECTROCARDIOGRAM REPORT Name: YORDY ADRIAN [id number] Admission: 09/24/19 Attend Phys: Discharge: 09/24/19 Date of : 67 Report #: [id number] THIS REPORT FOR: //name// [facility] ED Test Date: 2019-09-24 Test Time: 19:39:16 Pat Name: YORDY ADRIAN Department: Room: Gender: M [employer]: NAY : 1965 Requested By: Rodolfo Mckenzie Order Number: [id number] MD: Zeb Hernandez Measurements Intervals [place] Rate: 83 P: 25 MA: 151 QRS: 41 QRSD: 112 T: 12 QT: 351 QTc: 413 Interpretive Statements Sinus rhythm Inferior infarct, 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
== END 2019-09-24 21:55 | disposition home or self-care (01) ==
LOC: M.ERS 18:57
PROVIDERS: Emergency Medicine
DX: S90.02XA Contusion of left ankle, initial encounter (principal); M71.22 Synovial cyst of popliteal space [Baker], left knee; I10 Essential (primary) hypertension; E11.9 Type 2 diabetes mellitus without complications; I25.2 Old myocardial infarction; K21.9 Gastro-esophageal reflux disease without esophagitis; J44.9 Chronic obstructive pulmonary disease, unspecified; M06.9 Rheumatoid arthritis, unspecified; F17.210 Nicotine dependence, cigarettes, uncomplicated; Z98.890 Other specified postprocedural states; Z86.73 Personal history of transient ischemic attack (TIA), and cerebral infarction without residual deficits; Z91.040 Latex allergy status; X58.XXXA Exposure to other specified factors, initial encounter; Y92.89 Other specified places as the place of occurrence of the external cause; Y93.89 Activity, other specified; Y99.8 Other external cause status